=== PATIENT | female | born 1965 | race Caucasian/White ===

== ENCOUNTER 2018-12-17 21:39 | Inpatient (IN) ==
[2018-12-17 22:22] LABS: Basophils # 0.1 K/mcL (0.0-0.2); Basophils % 1.8 %; Hematocrit 39.6 % (35.3-44.9); Hemoglobin 13.8 g/dL (11.5-15.4); Immature Granulocytes % 0.5 % (0-4); Lymphocytes # 1.4 K/mcL (0.6-4.6); Lymphocytes % 34.3 %; Mean Corpuscular HGB Conc 34.8 g/dL (31.6-35.5); Mean Corpuscular Hemoglobin 33.7 pg (28.0-33.3); Mean Corpuscular Volume 96.6 fL (83.0-100.0); Mean Platelet Volume 8.4 fL (9.4-12.4); Monocytes # 0.4 K/mcL (0.0-1.3); Monocytes % 10.5 %; Neutrophils # 2.1 K/mcL (1.6-8.9); Platelet Count 389 K/mcL (140-400); Red Cell Distribution Width 12.8 % (11.5-14.5); Segmented Neutrophils % 51.9 %
[2018-12-17] MEDS ORDERED: Isovue-370 500 ML BOTTLE IVP ONE (22:27)
[2018-12-17 22:44] LABS: Alanine Aminotransferase 38 Units/L (7-52); Albumin 3.7 g/dL (3.5-5.7); Albumin/Globulin Ratio 1.3 (1.1-2.2); Alkaline Phosphatase 112 Units/L (34-104); Aspartate Amino Transferase 119 Units/L (13-39); BUN/Creatinine Ratio 8 (6-26); Bilirubin,Total 0.3 mg/dL (0.3-1.0); Blood Urea Nitrogen 5 mg/dL (6-20); Calcium 8.6 mg/dL (8.6-10.3); Carbon Dioxide 28 mEq/L (23-29); Chloride 95 mEq/L (98-107); Globulin 2.9 g/dL (2.4-3.5); Glucose 84 mg/dL (70-105); Osmolality,Calculated 272 (280-300); Potassium 3.7 mEq/L (3.5-5.1); Sodium 133 mEq/L (136-145); Total Protein 6.6 g/dL (6.4-8.9); eGFR For African Americans > 60 (> 60); eGFR For Non-African Americans > 60 (> 60)
[2018-12-17 22:45] LABS: Troponin I < 0.03 ng/mL (< 0.04)
[2018-12-18] MEDS ORDERED: levoFLOXacin 500 MG/100 ML 500 MG/100 ML BAG IVPB ONE (00:22)
[2018-12-18] MEDS ORDERED: Naloxone 0.4 MG/ML INJ IVP PRN (03:19)
[2018-12-18] MEDS: 0.9 % Sodium Chloride 1,000 ML IVC SCH ×2 (03:59→12:48)
[2018-12-18 04:22] LABS: Basophils % 0.9 %; Eosinophils # 0.1 K/mcL (0.0-0.6); Eosinophils % 1.2 %; Hematocrit 36.1 % (35.3-44.9); Hemoglobin 12.7 g/dL (11.5-15.4); Immature Granulocytes % 0.2 % (0-4); Lymphocytes # 1.1 K/mcL (0.6-4.6); Lymphocytes % 24.9 %; Mean Corpuscular HGB Conc 35.2 g/dL (31.6-35.5); Mean Corpuscular Volume 96.5 fL (83.0-100.0); Mean Platelet Volume 8.5 fL (9.4-12.4); Monocytes # 0.4 K/mcL (0.0-1.3); Neutrophils # 2.7 K/mcL (1.6-8.9); Platelet Count 370 K/mcL (140-400); Red Blood Count 3.74 M/mcL (3.82-4.97); Segmented Neutrophils % 62.8 %; White Blood Count 4.3 K/mcL (4.3-11.1)
[2018-12-18] MEDS ORDERED: diazePAM 10 MG/2 ML SYRINGE IVP PRN (04:35)
[2018-12-18] MEDS ORDERED: *HR* LORazepam 2 MG/ML VIAL IVP PRN ×4 (04:35→08:29)
[2018-12-18 04:45] LABS: Alanine Aminotransferase 36 Units/L (7-52); Albumin 3.5 g/dL (3.5-5.7); Albumin/Globulin Ratio 1.4 (1.1-2.2); Alkaline Phosphatase 101 Units/L (34-104); Aspartate Amino Transferase 106 Units/L (13-39); BUN/Creatinine Ratio 14 (6-26); Bilirubin,Total 0.5 mg/dL (0.3-1.0); Blood Urea Nitrogen 6 mg/dL (6-20); Calcium 8.3 mg/dL (8.6-10.3); Carbon Dioxide 23 mEq/L (23-29); Chloride 95 mEq/L (98-107); Globulin 2.5 g/dL (2.4-3.5); Glucose 86 mg/dL (70-105); Osmolality,Calculated 273 (280-300); Potassium 3.6 mEq/L (3.5-5.1); Sodium 133 mEq/L (136-145); Troponin I < 0.03 ng/mL (< 0.04); eGFR For African Americans > 60 (> 60); eGFR For Non-African Americans > 60 (> 60)
[2018-12-18] MEDS: Piperacillin/Tazobactam 3.375 GM in 0.9 % Sodium Chloride Mini Bag 100 ML IVPB SCH ×2 (07:53→16:07)
[2018-12-18] MEDS: Nicotine 21 MG PATCH.TD24 TD SCH (07:55)
[2018-12-18] MEDS ORDERED: Isovue-370 500 ML BOTTLE IVP ONE (08:26)
[2018-12-18 08:32] LABS: Amphetamine Screen,Urine Negative ng/mL (Cutoff=1000); Barbiturate Screen,Urine Negative ng/mL (Cutoff=200); Benzodiazepines Screen,Urine Negative ng/mL (Cutoff=200); Cannabinoid Screen,Urine Positive ng/mL (Cutoff = 50); Cocaine Screen,Urine Negative ng/mL (Cutoff= 300); Opiate Screen,Urine Positive ng/mL (Cutoff=300); Phencyclidine Screen,Urine Negative ng/mL (Cutoff=25)
[2018-12-18] MEDS ORDERED: Thiamine (B-1) 100 MG TABLET PO SCH (09:00)
[2018-12-18] MEDS ORDERED: Folic Acid 1 MG TABLET PO SCH (09:00)
[2018-12-18] MEDS ORDERED: amLODIPine 5 MG TABLET PO SCH (09:00)
[2018-12-18 09:16] LABS: Lactate Dehydrogenase 425 Units/L (140-271)
[2018-12-18 10:10] LABS: Prothrombin Time 11.9 Seconds (9.4-12.1)
[2018-12-18] MEDS: Ondansetron 4 MG/2 ML VIAL IVP PRN ×2 (11:36→22:07)
[2018-12-18] MEDS: amLODIPine 5 MG TABLET PO SCH (12:48)
[2018-12-18] MEDS: *HR* Heparin 5,000 UNIT/ML VIAL SQ SCH (18:09)
[2018-12-18] MEDS: Thiamine (B-1) 100 MG, Folic Acid 1 MG, MVI, adult with vitamin K 10 ML in 0.9 % Sodi... IVPB SCH (18:10)
[2018-12-18] MEDS: Acetaminophen 325 MG TABLET PO PRN (21:18)
[2018-12-19] MEDS: Piperacillin/Tazobactam 3.375 GM in 0.9 % Sodium Chloride Mini Bag 100 ML IVPB SCH ×3 (00:15→16:34)
[2018-12-19] MEDS: Acetaminophen 325 MG TABLET PO PRN ×2 (04:30→10:58)
[2018-12-19] MEDS: 0.9 % Sodium Chloride 1,000 ML IVC SCH ×4 (04:52→13:54)
[2018-12-19] MEDS: *HR* Heparin 5,000 UNIT/ML VIAL SQ SCH ×2 (04:54→16:46)
[2018-12-19] MEDS: Nicotine 21 MG PATCH.TD24 TD SCH (09:31)
[2018-12-19] MEDS: amLODIPine 5 MG TABLET PO SCH (09:31)
[2018-12-19] MEDS: Ondansetron 4 MG/2 ML VIAL IVP PRN ×2 (13:57→21:41)
[2018-12-19] MEDS: Thiamine (B-1) 100 MG, Folic Acid 1 MG, MVI, adult with vitamin K 10 ML in 0.9 % Sodi... IVPB SCH (16:34)
[2018-12-20] MEDS: Piperacillin/Tazobactam 3.375 GM in 0.9 % Sodium Chloride Mini Bag 100 ML IVPB SCH ×4 (00:37→22:38)
[2018-12-20] MEDS: 0.9 % Sodium Chloride 1,000 ML IVC SCH ×2 (02:05→18:39)
[2018-12-20] MEDS: Acetaminophen 325 MG TABLET PO PRN (02:43)
[2018-12-20 05:08] LABS: Basophils # 0.1 K/mcL (0.0-0.2); Basophils % 0.9 %; Eosinophils # 0.1 K/mcL (0.0-0.6); Eosinophils % 1.5 %; Hematocrit 36.4 % (35.3-44.9); Hemoglobin 12.5 g/dL (11.5-15.4); Immature Granulocytes % 0.4 % (0-4); Lymphocytes # 0.9 K/mcL (0.6-4.6); Lymphocytes % 12.5 %; Mean Corpuscular HGB Conc 34.3 g/dL (31.6-35.5); Mean Corpuscular Hemoglobin 34.4 pg (28.0-33.3); Mean Corpuscular Volume 100.3 fL (83.0-100.0); Monocytes # 0.5 K/mcL (0.0-1.3); Monocytes % 7.1 %; Platelet Count 328 K/mcL (140-400); Red Blood Count 3.63 M/mcL (3.82-4.97); Red Cell Distribution Width 12.9 % (11.5-14.5); Segmented Neutrophils % 77.6 %
[2018-12-20 05:16] LABS: Neutrophils # 5.4 K/mcL (1.6-8.9); White Blood Count 6.9 K/mcL (4.3-11.1)
[2018-12-20 05:19] LABS: INR 1.2; Prothrombin Time 13.2 Seconds (9.4-12.1)
[2018-12-20] MEDS: *HR* Heparin 5,000 UNIT/ML VIAL SQ SCH ×2 (05:49→16:23)
[2018-12-20] MEDS ORDERED: Ondansetron 4 MG/2 ML VIAL ONE (07:45)
[2018-12-20] MEDS ORDERED: *HR* Succinylcholine 200 MG/10 ML VIAL IVP ONE (07:45)
[2018-12-20] MEDS ORDERED: *HR* Propofol 200 MG/20 ML VIAL IVP ONE (07:45)
[2018-12-20] MEDS ORDERED: Lidocaine -MPF 2% 2 ML VIAL ONE (07:45)
[2018-12-20] MEDS ORDERED: Propofol 500 MG/50 ML INFUS..BTL ONE (07:47)
[2018-12-20] MEDS: amLODIPine 5 MG TABLET PO SCH (07:54)
[2018-12-20] MEDS: Nicotine 21 MG PATCH.TD24 TD SCH (08:03)
[2018-12-20] MEDS ORDERED: Ipratropium/Albuterol Neb 3 ML ONE (08:12)
[2018-12-20] MEDS ORDERED: Dexamethasone 4 MG/ML VIAL ONE (08:24)
[2018-12-20] MEDS ORDERED: Aminoglycoside Consult 1 EACH MC ONE (08:25)
[2018-12-20] MEDS ORDERED: *HR* Midazolam HCl 2 MG/2 ML VIAL ONE (08:25)
[2018-12-20] MEDS ORDERED: Esmolol 100 MG/10 ML VIAL IVP ONE (08:40)
[2018-12-20] MEDS ORDERED: Ketorolac 30 MG/ML VIAL ONE (09:10)
[2018-12-20] MEDS ORDERED: *HR* OxyCODONE Immed Rel 5 MG TABLET PO PRN (09:20)
[2018-12-20] MEDS ORDERED: *HR* Labetalol 20 MG/4 ML SYRINGE IVP PRN (09:20)
[2018-12-20] MEDS ORDERED: Albuterol 2.5 MG/3 ML NEBULIZER IH ONE (09:20)
[2018-12-20] MEDS ORDERED: *HR* Promethazine 25 MG/ML VIAL IVP PRN (09:20)
[2018-12-20] MEDS ORDERED: Ondansetron 4 MG/2 ML VIAL IVP ONE (09:20)
[2018-12-20] MEDS ORDERED: Ringers Solution, Lactated 1,000 ML IVC SCH (09:30)
[2018-12-20] MEDS: Ipratropium/Albuterol Neb 3 ML IH SCH ×3 (11:34→22:08)
[2018-12-20 12:43] LABS: Amylase,Pleural Fluid 1974 Units/L (No Ref Range); Glucose,Pleural Fluid < 10 mg/dL (No Ref Range); LDH,Pleural Fluid 99 Units/L (No Ref Range); Total Protein,Pleural Fluid < 3.0 g/dL
[2018-12-20 13:26] LABS: RBC,Pleural Fluid < 0.002 M/mcL
[2018-12-20] MEDS: Ondansetron 4 MG/2 ML VIAL IVP PRN ×2 (14:14→20:52)
[2018-12-20 14:56] LABS: Appearance of Pleural Fl Clear (Clear); Basophils,Pleural Fluid 0 %; Eosinophils,Pleural Fluid 0 %; Lymphocytes,Pleural Fluid 87.5 %; Monocytes,Pleural Fluid 7.5 %
[2018-12-20] MEDS: Thiamine (B-1) 100 MG, Folic Acid 1 MG, MVI, adult with vitamin K 10 ML in 0.9 % Sodi... IVPB SCH (16:27)
[2018-12-21 02:08] LABS: Basophils % 0.1 %; Hematocrit 33.5 % (35.3-44.9); Hemoglobin 11.7 g/dL (11.5-15.4); Immature Granulocytes % 0.4 % (0-4); Lymphocytes # 0.9 K/mcL (0.6-4.6); Lymphocytes % 9.2 %; Mean Corpuscular HGB Conc 34.9 g/dL (31.6-35.5); Mean Corpuscular Hemoglobin 33.7 pg (28.0-33.3); Mean Corpuscular Volume 96.5 fL (83.0-100.0); Mean Platelet Volume 8.9 fL (9.4-12.4); Monocytes # 0.6 K/mcL (0.0-1.3); Monocytes % 6.1 %; Neutrophils # 8.4 K/mcL (1.6-8.9); Platelet Count 319 K/mcL (140-400); Red Blood Count 3.47 M/mcL (3.82-4.97); Red Cell Distribution Width 12.8 % (11.5-14.5); Segmented Neutrophils % 84.2 %
[2018-12-21 02:27] LABS: BUN/Creatinine Ratio 14 (6-26); Blood Urea Nitrogen 5 mg/dL (6-20); Calcium 7.4 mg/dL (8.6-10.3); Carbon Dioxide 24 mEq/L (23-29); Chloride 98 mEq/L (98-107); Magnesium 1.4 mg/dL (1.6-2.6); Phosphorous 3.3 mg/dL (2.7-4.5); Potassium 2.6 mEq/L (3.5-5.1); Sodium 133 mEq/L (136-145); eGFR For African Americans > 60 (> 60); eGFR For Non-African Americans > 60 (> 60)
[2018-12-21] MEDS: Acetaminophen 325 MG TABLET PO PRN ×2 (02:29→12:22)
[2018-12-21 02:56] LABS: Glucose 130 mg/dL (70-105); Osmolality,Calculated 275 (280-300)
[2018-12-21] MEDS: Ipratropium/Albuterol Neb 3 ML IH SCH ×4 (04:02→23:02)
[2018-12-21] MEDS: *HR* Heparin 5,000 UNIT/ML VIAL SQ SCH ×2 (05:14→17:21)
[2018-12-21] MEDS: Piperacillin/Tazobactam 3.375 GM in 0.9 % Sodium Chloride Mini Bag 100 ML IVPB SCH ×3 (07:47→23:41)
[2018-12-21] MEDS: Folic Acid 1 MG TABLET PO SCH (07:49)
[2018-12-21] MEDS: Thiamine (B-1) 100 MG TABLET PO SCH (07:49)
[2018-12-21] MEDS: amLODIPine 5 MG TABLET PO SCH (07:49)
[2018-12-21] MEDS: Nicotine 21 MG PATCH.TD24 TD SCH (07:50)
[2018-12-21] MEDS: Ondansetron 4 MG/2 ML VIAL IVP PRN ×2 (07:55→17:18)
[2018-12-22] MEDS: *HR* Heparin 5,000 UNIT/ML VIAL SQ SCH ×2 (03:33→15:57)
[2018-12-22] MEDS: Ipratropium/Albuterol Neb 3 ML IH SCH ×4 (04:08→22:03)
[2018-12-22 06:39] LABS: Hematocrit 35.3 % (35.3-44.9); Hemoglobin 11.9 g/dL (11.5-15.4); Mean Corpuscular HGB Conc 33.7 g/dL (31.6-35.5); Mean Corpuscular Hemoglobin 33.7 pg (28.0-33.3); Mean Platelet Volume 8.9 fL (9.4-12.4); Platelet Count 318 K/mcL (140-400); Red Blood Count 3.53 M/mcL (3.82-4.97); Red Cell Distribution Width 12.9 % (11.5-14.5); White Blood Count 8.4 K/mcL (4.3-11.1)
[2018-12-22 08:34] LABS: BUN/Creatinine Ratio 14 (6-26); Blood Urea Nitrogen 7 mg/dL (6-20); Calcium 7.9 mg/dL (8.6-10.3); Carbon Dioxide 26 mEq/L (23-29); Chloride 98 mEq/L (98-107); Glucose 106 mg/dL (70-105); Osmolality,Calculated 274 (280-300); Potassium 3.4 mEq/L (3.5-5.1); Sodium 133 mEq/L (136-145); eGFR For African Americans > 60 (> 60); eGFR For Non-African Americans > 60 (> 60)
[2018-12-22 08:36] LABS: Magnesium 1.8 mg/dL (1.6-2.6); Phosphorous 3.2 mg/dL (2.7-4.5)
[2018-12-22] MEDS: Piperacillin/Tazobactam 3.375 GM in 0.9 % Sodium Chloride Mini Bag 100 ML IVPB SCH ×3 (09:25→23:51)
[2018-12-22] MEDS: Thiamine (B-1) 100 MG TABLET PO SCH (09:26)
[2018-12-22] MEDS: Nicotine 21 MG PATCH.TD24 TD SCH (09:26)
[2018-12-22] MEDS: amLODIPine 5 MG TABLET PO SCH (09:26)
[2018-12-22] MEDS: Folic Acid 1 MG TABLET PO SCH (09:26)
[2018-12-23] MEDS: Ipratropium/Albuterol Neb 3 ML IH SCH ×2 (04:05→10:53)
[2018-12-23] MEDS: *HR* Heparin 5,000 UNIT/ML VIAL SQ SCH (05:52)
[2018-12-23 07:17] LABS: Hematocrit 34.8 % (35.3-44.9); Hemoglobin 11.8 g/dL (11.5-15.4); Mean Corpuscular HGB Conc 33.9 g/dL (31.6-35.5); Mean Corpuscular Hemoglobin 33.9 pg (28.0-33.3); Platelet Count 335 K/mcL (140-400); Red Blood Count 3.48 M/mcL (3.82-4.97); White Blood Count 7.1 K/mcL (4.3-11.1)
[2018-12-23 07:25] VITALS: BP 158/76
[2018-12-23] MEDS: Thiamine (B-1) 100 MG TABLET PO SCH (07:37)
[2018-12-23] MEDS: Folic Acid 1 MG TABLET PO SCH (07:37)
[2018-12-23] MEDS: amLODIPine 5 MG TABLET PO SCH (07:38)
[2018-12-23] MEDS: Nicotine 21 MG PATCH.TD24 TD SCH (07:38)
[2018-12-23] MEDS: Piperacillin/Tazobactam 3.375 GM in 0.9 % Sodium Chloride Mini Bag 100 ML IVPB SCH (07:38)
[2018-12-23 07:41] LABS: BUN/Creatinine Ratio 11 (6-26); Blood Urea Nitrogen 5 mg/dL (6-20); Calcium 8.1 mg/dL (8.6-10.3); Carbon Dioxide 26 mEq/L (23-29); Chloride 97 mEq/L (98-107); Glucose 100 mg/dL (70-105); Magnesium 1.6 mg/dL (1.6-2.6); Osmolality,Calculated 273 (280-300); Phosphorous 3.7 mg/dL (2.7-4.5); Potassium 3.4 mEq/L (3.5-5.1); Sodium 133 mEq/L (136-145); eGFR For African Americans > 60 (> 60); eGFR For Non-African Americans > 60 (> 60)
[2018-12-23] MEDS: Ondansetron 4 MG/2 ML VIAL IVP PRN (07:42)
== END 2018-12-23 12:30 | disposition home or self-care (01) | DRG 871 ==
LOC: EMEROOARM 21:39 → 2ANU 21:39 → SUATTDRO 12-19 14:57
PROVIDERS: ADMIT Internal Medicine Nephrology; ATTEND Internal Medicine

== ENCOUNTER 2019-10-25 15:45 | Observation (INO) ==
[2019-10-25 17:32] LABS: Basophils # 0.1 K/mcL (0.0-0.2); Basophils % 0.6 %; Eosinophils # 0.1 K/mcL (0.0-0.6); Eosinophils % 1.2 %; Hemoglobin 8.5 g/dL (11.5-15.4); Immature Granulocytes % 0.4 % (0-4); Lymphocytes # 0.4 K/mcL (0.6-4.6); Mean Corpuscular HGB Conc 32.7 g/dL (31.6-35.5); Mean Corpuscular Hemoglobin 31.6 pg (28.0-33.3); Mean Corpuscular Volume 96.7 fL (83.0-100.0); Mean Platelet Volume 8.7 fL (9.4-12.4); Monocytes # 0.7 K/mcL (0.0-1.3); Monocytes % 8.7 %; Neutrophils # 6.8 K/mcL (1.6-8.9); Platelet Count 614 K/mcL (140-400); Red Blood Count 2.69 M/mcL (3.82-4.97); Red Cell Distribution Width 13.6 % (11.5-14.5); Segmented Neutrophils % 84.1 %; White Blood Count 8.1 K/mcL (4.3-11.1)
[2019-10-25 17:36] LABS: INR 1.2; Prothrombin Time 14.1 Seconds (9.4-12.1)
[2019-10-25 17:52] LABS: BUN/Creatinine Ratio 18 (6-26); Blood Urea Nitrogen 13 mg/dL (6-20); Calcium 8.9 mg/dL (8.6-10.3); Carbon Dioxide 36 mEq/L (23-29); Chloride 84 mEq/L (98-107); Glucose 127 mg/dL (70-105); Osmolality,Calculated 268 (280-300); Potassium 3.6 mEq/L (3.5-5.1); Sodium 128 mEq/L (136-145); eGFR For African Americans > 60 (> 60); eGFR For Non-African Americans > 60 (> 60)
[2019-10-25 17:54] LABS: Troponin I < 0.03 ng/mL (< 0.04)
[2019-10-25] MEDS ORDERED: Ipratropium/Albuterol Neb 3 ML IH PRN (20:07)
[2019-10-25] MEDS ORDERED: Levalbuterol Neb 1.25 MG/3 ML IH ONE (20:08)
[2019-10-25] MEDS ORDERED: Levalbuterol Neb 1.25 MG/3 ML ONE (20:15)
[2019-10-25] MEDS: *HR* Heparin 5,000 UNIT/ML VIAL SQ SCH (21:08)
[2019-10-25] MEDS: *HR* OxyCODONE/APAP 10/325 TABLET PO PRN (21:15)
[2019-10-25] MEDS ORDERED: *HR* LORazepam 0.5 MG TABLET PO ONE (21:41)
[2019-10-25 21:48] LABS: ABG Base Excess 9 mEq/L (-2 to 3); ABG HCO3 35 mEq/L (21-27); ABG Oxygen Saturation 93 % (95-98); ABG PCO2 54 mmHg (35-45); ABG PH 7.41 pH Units (7.32-7.45); ABG PO2 70 mmHg (85-104); ABG TCO2 36 mEq/L (20-26)
[2019-10-25] MEDS: Ipratropium/Albuterol Neb 3 ML IH SCH (23:18)
[2019-10-26] MEDS: Ipratropium/Albuterol Neb 3 ML IH SCH ×3 (03:42→16:00)
[2019-10-26 04:13] LABS: Basophils % 0.2 %; Eosinophils % 0.1 %; Hematocrit 26.5 % (35.3-44.9); Hemoglobin 8.4 g/dL (11.5-15.4); Immature Granulocytes % 0.5 % (0-4); Lymphocytes # 0.3 K/mcL (0.6-4.6); Lymphocytes % 3.1 %; Mean Corpuscular HGB Conc 31.7 g/dL (31.6-35.5); Mean Corpuscular Volume 97.8 fL (83.0-100.0); Mean Platelet Volume 8.9 fL (9.4-12.4); Monocytes # 0.5 K/mcL (0.0-1.3); Monocytes % 6.4 %; Neutrophils # 7.3 K/mcL (1.6-8.9); Platelet Count 625 K/mcL (140-400); Red Blood Count 2.71 M/mcL (3.82-4.97); Red Cell Distribution Width 13.8 % (11.5-14.5); Segmented Neutrophils % 89.7 %; White Blood Count 8.1 K/mcL (4.3-11.1)
[2019-10-26 04:31] LABS: Alanine Aminotransferase 8 Units/L (7-52); Albumin 3.3 g/dL (3.5-5.7); Albumin/Globulin Ratio 1.1 (1.1-2.2); Alkaline Phosphatase 85 Units/L (34-104); Aspartate Amino Transferase 17 Units/L (13-39); BUN/Creatinine Ratio 20 (6-26); Bilirubin,Total 0.4 mg/dL (0.3-1.0); Blood Urea Nitrogen 14 mg/dL (6-20); Calcium 8.5 mg/dL (8.6-10.3); Carbon Dioxide 33 mEq/L (23-29); Chloride 85 mEq/L (98-107); Globulin 2.9 g/dL (2.4-3.5); Glucose 127 mg/dL (70-105); Lactate Dehydrogenase 202 Units/L (140-271); Osmolality,Calculated 270 (280-300); Potassium 3.6 mEq/L (3.5-5.1); Sodium 129 mEq/L (136-145); Total Protein 6.2 g/dL (6.4-8.9); eGFR For African Americans > 60 (> 60); eGFR For Non-African Americans > 60 (> 60)
[2019-10-26 04:35] LABS: % Iron Saturation 22 % (15-50); Iron 50 mcg/dL (50-170); Transferrin 163 mg/dL (203-362)
[2019-10-26 04:50] LABS: Ferritin 594 ng/mL (10-120)
[2019-10-26] MEDS ORDERED: Morphine Sulfate ER (12 HR) 15 MG TABLET.ER PO SCH (06:00)
[2019-10-26] MEDS: *HR* Heparin 5,000 UNIT/ML VIAL SQ SCH (06:05)
[2019-10-26 10:55] VITALS: BP 121/78
[2019-10-26] MEDS: *HR* OxyCODONE/APAP 10/325 TABLET PO PRN (14:43)
[2019-10-26] MEDS ORDERED: Potassium Chloride Elixir 20 MEQ/15 ML UDC PO SCH (17:00)
[2019-10-26] MEDS ORDERED: ABEMACICLIB 150 MG PO SCH (21:00)
[2019-10-26] MEDS ORDERED: (Lubiprostone [Amitiza] 24 MCG) PO SCH (21:00)
== END 2019-10-26 16:17 | disposition home or self-care (01) ==
LOC: EMEROOARM 15:45 → 2ANU 15:45
PROVIDERS: ADMIT Internal Medicine; ATTEND Internal Medicine